=== PATIENT | female | born 1970 | race Caucasian/White ===

== ENCOUNTER 2017-06-25 13:45 | Day surgery (SDC) | payer OTHER ==
[2017-06-25] MEDS ORDERED: PROPOFOL 20 ML ×2 (15:25→16:06)
== END 2017-06-25 16:47 | disposition home or self-care (01) ==
LOC: GIL 13:45
DX: Z86.010 Personal history of colon polyps (principal); K64.8 Other hemorrhoids; E78.5 Hyperlipidemia, unspecified
CPT/HCPCS: 45378; 84703